=== PATIENT | male | born 1970 | race Caucasian/White ===

== ENCOUNTER → 2017-10-16 | Outpatient (CLI) | payer BC ==
[2017-10-16 09:34] LABS: MEAN CORPUSCULAR HEMOGLOBIN 31.5 pg (25-34); MEAN PLATELET VOLUME 9.9 fL (7.4-10.4); PLATELET COUNT 267 K/uL (130-400); RED BLOOD COUNT 5.11 M/uL (4.7-6.1); WHITE BLOOD COUNT 5.92 K/uL (4.8-10.8)
[2017-10-16 10:19] LABS: ALB/GLOB RATIO 1.1 (0.9-2); ALKALINE PHOSPHATASE 62 U/L (45-117); ALT/SGPT 44 U/L (12-78); AST/SGOT 25 U/L (15-37); BLOOD UREA NITROGEN 25 mg/dl (7-18); BUN/CREATININE RATIO 25.3 (10-20); CALCIUM 9.1 mg/dl (8.5-10.1); CARBON DIOXIDE 32 mmol/L (21-32); CHLORIDE 104 mmol/L (98-107); CHOLESTEROL 221 mg/dl (0-200); CHOLESTEROL/HDL RATIO 4.7; CREATININE 0.99 mg/dl (0.60-1.40); GLUCOSE 94 mg/dl (70-99); HDL CHOLESTEROL 47 mg/dl; LDL CHOLESTEROL CALCULATED 140 mg/dl; POTASSIUM 4.5 mmol/L (3.5-5.1); SODIUM 136 mmol/L (136-145); TRIGLYCERIDES 171 mg/dl (0-150); VERY LOW DENSITY LIPOPROT CALC 34 mg/dl
== END | disposition home or self-care (01) ==
LOC: C.LAB 07:07
PROVIDERS: ATTEND Internal Medicine
DX: Z00.00 Encounter for general adult medical examination without abnormal findings (principal)

== ENCOUNTER 2022-09-12 09:20 | Inpatient (IN) ==
--- NOTE | 2022-09-12 09:47 | Emergency Department Note ---
History of Present Illness General Chief complaint: Dental/Oral Stated complaint: MOUTH PAIN, SENT OVER BY DENTIST Time Seen by Provider: 09/12/22 09:33 History of Present Illness Maximum Pain Intensity: 4 This is a 52-year-old male that presents to the emergency department via private vehicle with complaints of "mouth pain, sent over by dentist". The patient notes that he has been experiencing right posterior inferior dental pain for a while now but as of recent has caused issue. The patient notes that he saw his dentist this past Friday and was started on oral amoxicillin. He has been taking the medication as prescribed. However, despite this over the past few days he has been experiencing increasing swelling to the right side of the face/neck and now difficulty opening the mouth. Patient saw his dentist today and was referred here for further evaluation and management. Patient notes pain is overall minimal and currently rates his pain as a 4/10. Patient specifically notes issue with tooth #31. Home Medications Medication Instructions Recorded Confirmed Type multivitamin (Daily Multi-Vitamin 1 tab PO HS 11/01/19 08/12/22 History tablet) mupirocin 2 % topical ointment 1 applic topical BID PRN epistaxis 08/18/20 08/12/22 Rx #15 grams aspirin 81 mg tablet 81 mg PO QPM 10/03/20 08/12/22 History finasteride 5 mg tablet 2.5 mg PO HS #45 tabs 04/01/22 08/12/22 Rx bile tvyoj-xjdc-juny-phenolpth 1 tab PO QPM 04/10/22 08/12/22 History tablet Allergies Allergy/AdvReac Type Severity Reaction Status Date / Time shellfish derived Allergy Severe Throat Verified 08/12/22 08:19 swelling No Known Drug Allergies Allergy Verified 08/12/22 08:19 Past Med/Surg History Medical History Allergic rhinitis due to pollen Anxiety Asthma HX NO INHALERS Chemotherapeutic agent or infusion extravasation received in [id number] COVID-19 virus detected HOME TEST POSITIVE 12/06/2160-[id number] AT HOME Hypercholesterolemia with LDL greater than 190 mg/dL NO MEDS-DIET MANAGING NHL (non-Hodgkin's lymphoma) diagnosed 2005--chemo/sx to remove tumor Ruptured or perforated eardrum Seasonal allergies Spring and Summer Surgical History History of colonoscopy History of nasal cauterization 04/11/22-Harsha History of oral surgery 2006 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 History of tonsillectomy and adenoidectomy Hx of LASIK S/P cholecystectomy S/P wisdom tooth extraction Family History Father Prostate cancer Family hx colonic polyps Cancer Uncle Family hx colonic polyps Uncle Family hx colonic polyps Grandmother (Paternal) Family hx of colon cancer Other Allergies No family history of adverse response to anesthesia Denies family history of Ovarian cancer Hearing loss No family history of bleeding disorder Heart disease Myocardial infarction Breast cancer Colorectal cancer Hypertension Stroke Asthma Social History Smoking Status: Never smoker Second Hand Exposure: No; Hx Alcohol Use: Yes Alcohol type: beer Alcohol Intake Frequency Comment: 1-2 x's a month Hx Substance Use: No Preferred Language: Setswana Communication Ability: Effective Visual Impairment: No Limitations Hearing Ability: Normal Stoker Erector Required: No Beliefs That Will Affect Care: None marital status: Current Living Situation: Spouse Current Living Situation Comment: Lives with and daughter current occupational status: employed current occupation: [employer] AT [employer] Feels Safe at Home: Yes Childhood Exposure to Second-Hand Smoke: No Dental Care, Regularly: Yes Physical Activity Frequency: 5-6 Times per Week Seatbelt Use: always Sunscreen Use: Yes Assistive Devices: None Review of Systems A total of 10 systems reviewed and were otherwise negative Physical Exam Vital Signs Vital Signs - 24 hr 09/12/22 09:24 09/12/22 11:21 Temperature 36.5 C Temperature Source Temporal Artery Scan Pulse Rate 82 Pulse Rate [Finger] 90 Pulse Rhythm [Finger] Regular Pulse Strength [Finger] Normal Respiratory Rate 20 19 Respiratory Effort / Characteristics Non-Labored Non-Labored Respiratory Depth Normal Normal Respiratory Pattern Regular Blood Pressure 162/92 H Blood Pressure [Left Arm] 141/96 H Blood Pressure Mean 115 Blood Pressure Mean [Left Arm] 111 Blood Pressure Position [Left Arm] Lying Pulse Oximetry 98 96 Oxygen Delivery Method Room Air Room Air Sepsis Recent Fever Within 48 Hours No Sepsis New/Unexplained Change in Mental Status N/A Sepsis Action Taken by Nursing No Action Required VITAL SIGNS - Vital signs and nursing notes were reviewed. Stable and afebrile. GENERAL -52-year-old male appearing his stated age who is in no acute distress. Communicates well with provider and answers questions appropriately. SKIN -erythema present overlying the patient's submandibular region and right anterior neck region. This is also overlying the right jawline. Edema present to these areas as well. HEAD - NC/AT. EYES - PERRL with EOMI bilaterally. Sclera anicteric. EARS - No deformities of external structures noted on gross examination bilaterally. External auditory canals without discharge or otorrhea. Tympanic membranes pearly de la rosa without retraction or bulging. No fluid or purulent material visualized behind the TM. Handle of malleus, umbo, cone of light, pars tensa/flaccid all easily visualized. NOSE - Midline and without cyanosis. No epistaxis or purulent drainage noted. Septum midline without deviation or septal hematoma noted. MOUTH/OROPHARYNX - Without perioral cyanosis. Buccal mucosa pink and moist and without leukoplakia. Mild trismus noted. Posterior pharynx within normal limits. No drooling. No stridor. No wheezing or tripoding. Tenderness present overlying the patient's floor of the mouth/sublingual region. Tenderness also extending into the jawline on the right and right anterior neck with palpable lymphadenopathy. NECK - Neck with FROM. Supple to palpation. Right anterior lymphadenopathy noted. No nuchal rigidity. LUNGS - Chest wall symmetric without accessory muscle use, intercostals retractions, or central cyanosis. Normal vesicular breath sounds CTA B/L. No wheezes, rales, or rhonchi appreciated. CARDIAC - RRR with S1/S2. No murmur, rubs, or gallops appreciated. NEUROLOGIC - Cranial nerves II through XII grossly intact. PSYCH - A&Ox3 and cooperates fully with examiner. Pt is very pleasant and interacts well with examiner. Course Administered Medications Ampicillin Sodium/Sulbactam Sodium 3,000 mg/ Sodium Chloride 108 mls @ 200 mls/hr IV Q6H [facility]; Protocol Stop: 09/22/22 17:59 Last Admin: 09/12/22 23:34 Dose: 200 mls/hr Documented By: Infusion: 09/12/22 19:10 Dose: 0 mls/hr Documented By: Admin: 09/12/22 18:34 Dose: 200 mls/hr Documented By: MICAH Acetaminophen (Ofirmev) 1,000 mg in 100 mls @ 400 mls/hr IV Q8H PRN PRN Reason: Mild pain or fever Stop: 09/15/22 13:31 Last Infusion: 09/12/22 20:10 Dose: 0 mls/hr Documented By: Admin: 09/12/22 19:55 Dose: 400 mls/hr Documented By: NATALYA Lactated Ringer's (Lr) 1,000 mls @ 125 mls/hr IV .Q8H JESUS Stop: 10/12/22 13:31 Last Admin: 09/12/22 22:17 Dose: 125 mls/hr Documented By: Infusion: 09/12/22 22:05 Dose: 125 mls/hr Documented By: Admin: 09/12/22 14:05 Dose: 125 mls/hr Documented By: MICAH Ketorolac Tromethamine (Ketorolac Tromethamine 15 Mg/Ml Vial) 15 mg IV Q6H PRN PRN Reason: Mild Pain Stop: 09/17/22 13:31 Last Admin: 09/12/22 23:46 Dose: 15 mg Documented By: Admin: 09/12/22 14:26 Dose: 15 mg Documented By: MICAH Multivitamins (Multivitamin Tab) 1 tab PO HS JESUS Stop: 10/12/22 20:59 Last Admin: 09/12/22 19:54 Dose: 1 tab Documented By: NATALYA Discontinued Medications Ampicillin Sodium/Sulbactam Sodium 3,000 mg/ Sodium Chloride 108 mls @ 216 mls/hr IV NOW ONE Stop: 09/12/22 11:44 Last Infusion: 09/12/22 13:49 Dose: 0 mls/hr Documented By: Admin: 09/12/22 12:00 Dose: 216 mls/hr Documented By: JESSICA Medical Decision Making Laboratory Data Result diagrams: 09/12/22 10:04 09/12/22 10:04 Lab Results 09/12/22 09/12/22 Range/Units 10:04 10:04 WBC 6.25 (4.8-10.8) K/ul RBC 4.95 (4.63-6.08) M/uL Hgb 15.3 (14.0-18.0) g/dl Hct 43.9 (40.1-51.0) % MCV 88.7 (80.0-100.0) fL MCH 30.9 (25.0-34.0) pg MCHC 34.9 (32.0-36.0) g/dL RDW Std Deviation 43.4 (36.4-46.3) fL RDW Coeff of Laureen 13.2 (11.5-14.5) % Plt Count 251 (130-400) K/uL MPV 8.9 L (9.4-12.4) fL Immature Gran % (Auto) 0.2 % Neut % (Auto) 58.7 % Lymph % (Auto) 27.2 % Forrest % (Auto) 12.3 % Eos % (Auto) 1.4 % Baso % (Auto) 0.2 % Neut # (Auto) 3.67 (1.4-6.5) K/uL Lymph # (Auto) 1.70 (1.2-3.4) K/uL Forrest # (Auto) 0.77 (0.24-0.82) K/uL Eos # (Auto) 0.09 (0-0.50) K/uL Baso # (Auto) 0.01 (0-0.2) K/uL Immature Gran # (Auto) 0.01 (0.00-0.02) K/uL Sodium 138 (136-145) mmol/L Potassium 4.2 (3.5-5.1) mmol/L Chloride 103 (98-107) mmol/L Carbon Dioxide 30 (21-32) mmol/L Anion Gap 5 (3-11) BUN 18 (6-23) mg/dl Creatinine 0.79 (0.6-1.4) mg/dl Est Cr Clr Drug Dosing 140.6 ml/min Est GFR ( Amer) 119.7 ml/min Est GFR (Non-Af Amer) 103.2 ml/min BUN/Creatinine Ratio 22.8 H (10-20) Glucose 100 H (70-99(Fasting)) mg/dl Calcium 9.6 (8.5-10.1) mg/dl Total Bilirubin 0.4 (0.2-1.0) mg/dl AST 17 (13-39) U/L ALT 28 (7-52) U/L Alkaline Phosphatase 40 (34-104) U/L Total Protein 7.3 (6.0-8.3) gm/dl Albumin 4.0 (3.4-5.0) gm/dl Globulin 3.3 (2.5-4.0) gm/dl Albumin/Globulin Ratio 1.2 (0.9-2) Imaging Data Radiologist's Impression: Soft Tissue Neck CT 09/12/22 10:06 CT soft tissue neck wo con CLINICAL HISTORY: Pain, right-sided neck and facial swelling. Technique: Axial CT images of the soft tissues of the neck were obtained following intravenous administration of 100 cc of Omnipaque 300. Automated dose lowering techniques and/or adjustment according to patient size were utilized for this exam. CT DOSE: 490.49 mGycm Comparison: None available at the time of this dictation. Findings: Soft tissue swelling is seen in the mandibular soft tissues extending to the anterior mid neck without evidence of drainable fluid collection. Within the limits of a nondedicated exam, there is apparent periapical lucency in the right mandibular second molar. No cortical breakthrough is seen. The oropharynx, hypopharynx, larynx, and trachea are patent. No enlarged lymph nodes are seen. The parotid glands, submandibular glands, and thyroid gland are unremarkable. Imaged portions of the brain parenchyma are unremarkable. The paranasal sinuses and mastoid air cells are normal in appearance. Impression: Soft tissue stranding in the mandibular tissues extending to the mid neck compatible with cellulitis. No drainable fluid collection is seen. ACT 112: Negative or not required by law. Electronically signed by: Romeo Hua M.D. 09/12/2022 10:49 AM [facility] Narrative Patient was seen and evaluated as above in room C05. Review was performed of nursing notes and vital signs. After obtaining a thorough history and physical examination the above work up was performed. Patient presents to us today for evaluation of right-sided facial swelling and pain. He clinically appears well but does certainly have edema noted to the submental/mandibular regions. Options of care were discussed with the patient. IV access was established. Labs were drawn. There is no leukocytosis or concerning anemia. CT imaging was obtained but without contrast noting his shellfish allergy and concerned that if there is any reaction/swelling this would only compound with the swelling already present to the oral region. COVID testing negative. CT scan results as above. Soft tissue stranding in the mandibular tissues extending to the mid neck compatible with cellulitis. No drainable fluid collection. I discussed this with the on-call oral surgeon, Dr. Dominguez. He will see the patient here in the hospital. Patient has already been on 2 days of oral antibiotics with worsening symptoms. We will proceed with inpatient management with likely surgical extraction of the tooth. IV Unasyn ordered. Case then discussed with the hospitalist. Please refer to further documentation regarding his stay. Patient amenable to plan of care. GCS: 15 In the evaluation and treatment of this patient, the following differential diagnoses were considered: Periapical Abscess, Osteonecrosis of the Jaw, Dental Fracture, Dental Caries, Ethan's Angina, Vincent's Angina, Facial Cellulitis. Impression & Plan Cellulitis of neck, Dental infection, Failure of outpatient treatment Discharge Plan Visit Data Chief Complaint: Dental/Oral Stated Complaint: MOUTH PAIN, SENT OVER BY DENTIST ED Provider: Nayely Castaneda ED Midlevel Provider: Marshal Lopez Discharge Problem: Cellulitis of neck, Dental infection, Failure of outpatient treatment Patient Disposition: Admitted As Inpatient Condition: Good Discharge Instructions Interventions: ED Discharge Assessment Last Done: 09/12/22 12:56
[2022-09-12 10:16] LABS: Basophils # (auto) 0.01 K/uL (0-0.2); Basophils % (auto) 0.2 %; Eosinophils # (auto) 0.09 K/uL (0-0.50); Eosinophils % (auto) 1.4 %; Hematocrit (blood only) 43.9 % (40.1-51.0); Hemoglobin 15.3 g/dl (14.0-18.0); Immature Granulocytes # (auto) 0.01 K/uL (0.00-0.02); Immature Granulocytes % (auto) 0.2 %; Lymphocytes % (auto) 27.2 %; Mean Corpuscular Hemoglobin 30.9 pg (25.0-34.0); Mean Corpuscular Hgb Conc 34.9 g/dL (32.0-36.0); Mean Corpuscular Volume 88.7 fL (80.0-100.0); Mean Platelet Volume 8.9 fL (9.4-12.4); Monocytes # (auto) 0.77 K/uL (0.24-0.82); Monocytes % (auto) 12.3 %; Neutrophils # (auto) 3.67 K/uL (1.4-6.5); Neutrophils % (auto) 58.7 %; Platelet Count 251 K/uL (130-400); RDW Coefficient of Variation 13.2 % (11.5-14.5); RDW Standard Deviation 43.4 fL (36.4-46.3); Red Blood Count 4.95 M/uL (4.63-6.08); White Blood Count 6.25 K/ul (4.8-10.8)
[2022-09-12 10:42] LABS: Albumin Globulin Ratio 1.2 (0.9-2); BUN Creatinine Ratio 22.8 (10-20); Bilirubin,Total 0.4 mg/dl (0.2-1.0); Calcium 9.6 mg/dl (8.5-10.1); Creatinine Clr Calc Pharmacy 140.6 ml/min; Est GFR (African American) 119.7 ml/min; Est GFR (Non-African American) 103.2 ml/min; Globulin 3.3 gm/dl (2.5-4.0); Potassium 4.2 mmol/L (3.5-5.1); Total Protein 7.3 gm/dl (6.0-8.3)
--- NOTE | 2022-09-12 10:52 | CT Scan Report ---
CT soft tissue neck wo con CLINICAL HISTORY: Pain, right-sided neck and facial swelling. Technique: Axial CT images of the soft tissues of the neck were obtained following intravenous admini stration of 100 cc of Omnipaque 300. Automated dose lowering techniques and/or adjustment according t o patient size were utilized for this exam. CT DOSE: 490.49 mGycm Comparison: None available at the time of this dictation. Findings: Soft tissue swelling is seen in the mandibular soft tissues extending to the anterior mid neck withou t evidence of drainable fluid collection. Within the limits of a nondedicated exam, there is apparent periapical lucency in the right mandibular second molar. No cortical breakthrough is seen. The oroph arynx, hypopharynx, larynx, and trachea are patent. No enlarged lymph nodes are seen. The parotid gla nds, submandibular glands, and thyroid gland are unremarkable. Imaged portions of the brain parenchyma are unremarkable. The paranasal sinuses and mastoid air cell s are normal in appearance. Impression: Soft tissue stranding in the mandibular tissues extending to the mid neck compatible with cellulitis. No drainable fluid collection is seen. ACT 112: Negative or not required by law. Electronically signed by: Romeo Hua M.D. 09/12/2022 10:49 AM
[2022-09-12] MEDS ORDERED: AMPICILLIN/SULBACTAM SOD 3,000 MG in 0.9 % SODIUM CHLORIDE 100 ML IV ONE (11:15)
--- NOTE | 2022-09-12 11:29 | History & Physical Report ---
Date of Service September 12, 2022 Assessment & Plan (1) Periodontitis: Plan: - Soft tissue neck CT w/o contrast: Periapical lucency in the right mandibular second molar without cortical breakthrough. Soft tissue stranding in the mandibular tissues extending to mid neck compatible cellulitis without drainable fluid collection. Oropharynx, hypopharynx, larynx, and trachea are patent. Parotid glands, submandibular glands, thyroid gland unremarkable. -Patient is managing secretions on his own, no shortness of breath or airway narrowing. - IV Unasyn every 6 hours - Oromaxillary surgeon consulted. Appreciate assistance and recommendations. - NPO. IVF for hydration. - Tylenol, Toradol, morphine for pain control. - Head of bed should be 90 degrees at all times. (2) History of non-Hodgkin's lymphoma: Plan: - History of stage I non-Hodgkin's lymphoma. - s/p tongue lesion resection, chemo, radiation in . (3) Hypercholesterolemia with LDL greater than 190 mg/dL: Plan: - Patient declines statin therapy at this time. Plan - Admit to PCU. - SCDs for VTE PPx. - Full code. - Holding home meds (aspirin, Proscar, bile salt) while n.p.o. History of Present Illness Chief Complaint: Right-sided jaw pain, swelling x2 days Primary Care Provider: Lien Ruiz MD Tristan Márquez is a 52-year-old male with a past medical history significant for non-Hodgkin's lymphoma in remission, hyperlipidemia, and BPH is presenting today at the referral of his dentist for jaw swelling. That 10 days ago, he noticed mild jaw pain. It was initially mild and tolerable at home, however it became quite severe this Friday. He saw his dentist 2 days ago, on Friday and x-rays were taken. He was told the nerve roots appeared and that he would need to have a root canal. He has been on amoxicillin since Friday, however today his pain is worse, his entire jaw is red, and he is having difficulty opening his mouth due to swelling. He is unable to eat much due to difficulty opening jaw and pain in his teeth on the right side, he felt warm yesterday but has not had any fever or chills, no drooling, choking, shortness of breath, or feeling as though his throat is closing. Soft tissue neck CT without contrast was ordered given patient's anaphylactic allergy to shellfish. There is apparent periapical lucency in the right mandibular second molar without cortical breakthrough. Soft tissue stranding in the mandibular tissues extending to the mid neck compatible with a cellulitis, no drainable fluid collection is seen. Oropharynx, hypopharynx, larynx, trachea patent, there are no enlarged lymph nodes seen, and the parotid glands, submandibular glands, and thyroid gland are unremarkable. Labs are largely unrevealing, without a white count or left shift, electrolytes within normal limits, renal function at baseline, no transaminitis. He will be admitted for IV antibiotics and evaluation by oromaxillary surgeon. Allergies Allergy/AdvReac Type Severity Reaction Status Date / Time shellfish derived Allergy Severe Throat Verified 08/12/22 08:19 swelling No Known Drug Allergies Allergy Verified 08/12/22 08:19 Home Medications Medication Instructions Recorded Confirmed Type multivitamin (Daily Multi-Vitamin 1 tab PO HS 11/01/19 09/16/22 History tablet) mupirocin 2 % topical ointment 1 applic topical BID PRN epistaxis 08/18/20 09/16/22 Rx #15 grams aspirin 81 mg tablet 81 mg PO QPM 10/03/20 09/16/22 History finasteride 5 mg tablet 2.5 mg PO HS #45 tabs 04/01/22 09/16/22 Rx bile dqces-gtvu-bnnz-phenolpth 1 tab PO QPM 04/10/22 09/16/22 History tablet ondansetron HCl 8 mg tablet 8 mg PO Q8H PRN nausea and 09/13/22 09/16/22 Rx vomiting #10 tabs chlorhexidine gluconate 0.12 % 15 ml buccal BID 14 days #473 mL 09/14/22 09/16/22 Rx mouthwash (Peridex) Past Med/Surg History Medical History Allergic rhinitis due to pollen Anxiety Asthma HX NO INHALERS Chemotherapeutic agent or infusion extravasation received in 0930-5339 COVID-19 virus detected HOME TEST POSITIVE 12/06/2136-[id number] AT HOME Hypercholesterolemia with LDL greater than 190 mg/dL NO MEDS-DIET MANAGING NHL (non-Hodgkin's lymphoma) diagnosed 2005--chemo/sx to remove tumor Ruptured or perforated eardrum Seasonal allergies Spring and Summer Surgical History History of colonoscopy History of nasal cauterization 04/11/22-[facility]ha History of oral surgery 2005 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 History of tonsillectomy and adenoidectomy Hx of LASIK S/P cholecystectomy S/P wisdom tooth extraction Family History Father Prostate cancer Family hx colonic polyps Cancer Uncle Family hx colonic polyps Uncle Family hx colonic polyps Grandmother (Paternal) Family hx of colon cancer Other Allergies No family history of adverse response to anesthesia Denies family history of Ovarian cancer Hearing loss No family history of bleeding disorder Heart disease Myocardial infarction Breast cancer Colorectal cancer Hypertension Stroke Asthma Social History Smoking Status: Never smoker Second Hand Exposure: No; Hx Alcohol Use: Yes Alcohol type: beer Alcohol Intake Frequency Comment: 1-2 x's a month Hx Substance Use: No Preferred Language: Filipino Communication Ability: Effective Visual Impairment: No Limitations Hearing Ability: Normal Rn Ante Partum Required: No Beliefs That Will Affect Care: None marital status: Current Living Situation: Spouse Current Living Situation Comment: Lives with and daughter current occupational status: employed current occupation: [employer] AT [employer] Feels Safe at Home: Yes Childhood Exposure to Second-Hand Smoke: No Dental Care, Regularly: Yes Physical Activity Frequency: 5-6 Times per Week Seatbelt Use: always Sunscreen Use: Yes Assistive Devices: None Review of Systems Review of Systems: Constitutional: No fever/chills, weakness, fatigue, myalgias, anorexia, night sweats Eyes: No diplopia, no worsening or blurred vision ENT: Right-sided jaw pain, worse in the back along area of molars, with right sided jaw swelling worse since last evening, difficulty opening jaw, however no difficulty swallowing, managing secretions Respiratory: No cough, sputum, dyspnea at rest or on exertion Cardiovascular: No chest pain, tightness or palpitations Abdomen: No pain, nausea, vomiting, diarrhea or constipation : Denies dysuria, hematuria, increased urgency/frequency, urinary retention Musculoskeletal: No joint pain, calf pain, swelling Neurologic: No weakness, numbness/tingling, or balance problems Psychiatric: No anxiety or depression Skin: No rash or itch Physical Exam Physical Exam: General: awake, alert, no apparent distress Head: Normocephalic, atraumatic ENT: Right neck/jaw erythematous and edematous, stops at midline; oral exam limited secondary to patient's inability to open jaw very wide, however no pharyngeal exudates seen, mucous membranes moist, no obvious abscess, purulent drainage, or infection noted Chest: Clear to auscultation, on room air, no adventitious breath sounds Cardiac: Regular rate and rhythm, no murmur, no JVD, normal peripheral pulses, good capillary refill Abdominal: NABS x 4 quadrants, soft, nontender to palpation, no rebound, guarding or tenderness Extremities: Normal inspection, no peripheral edema or erythema, calfs nontender to palpation Psych: Normal mood and affect Neuro: AAO x 3, strength intact bilaterally and rated 5/5, no motor deficits, speech is clear, no peripheral sensory deficits Skin: no rash or erythema Results & Data Results & Data ([facility]) Vital Signs (Past 12 Hours) Vital Signs Temp Pulse Resp BP Pulse Ox O2 Del Method 09/12/22 09:24 36.5 C 82 20 162/92 H 98 Room Air Laboratory Results Abnormal lab results 09/12/22 09/12/22 Range/Units 10:04 10:04 MPV 8.9 L (9.4-12.4) fL BUN/Creatinine Ratio 22.8 H (10-20) Glucose 100 H (70-99(Fasting)) mg/dl Diagnostic Findings Soft Tissue Neck CT 09/12/22 10:06 CT soft tissue neck wo con CLINICAL HISTORY: Pain, right-sided neck and facial swelling. Technique: Axial CT images of the soft tissues of the neck were obtained following intravenous administration of 100 cc of Omnipaque 300. Automated dose lowering techniques and/or adjustment according to patient size were utilized for this exam. CT DOSE: 490.49 mGycm Comparison: None available at the time of this dictation. Findings: Soft tissue swelling is seen in the mandibular soft tissues extending to the anterior mid neck without evidence of drainable fluid collection. Within the limits of a nondedicated exam, there is apparent periapical lucency in the right mandibular second molar. No cortical breakthrough is seen. The oropharynx, hypopharynx, larynx, and trachea are patent. No enlarged lymph nodes are seen. The parotid glands, submandibular glands, and thyroid gland are unremarkable. Imaged portions of the brain parenchyma are unremarkable. The paranasal sinuses and mastoid air cells are normal in appearance. Impression: Soft tissue stranding in the mandibular tissues extending to the mid neck compatible with cellulitis. No drainable fluid collection is seen. ACT 112: Negative or not required by law. Electronically signed by: Romeo Hua M.D. 09/12/2022 10:49 AM Code Status & VTE Plan Code Status Full code Supervising Physician Co-Signing Physician Notes During face to face encounter, I obtained a history of present illness and performed a physical examination. I reviewed above note and agree with it. D/W APC Ellison and patient plan of care. Patient will be seen by Oromaxi. surgeon. will continue antibiotics as stated above for periodontitis PG Care Time/CCT Total # of Minutes Spent Total Time Spent with Patient: Total time spent is greater than 50% in coordination of care (as documented) at patient's floor/unit and/or counseling patient: Coding Level of Care Code 18636 Initial Inpt Care Lvl 3 Diagnoses Periodontitis K05.30 History of non-Hodgkin's lymphoma Z85.72 Hypercholesterolemia with LDL greater than 190 mg/dL E78.00
[2022-09-12] MEDS ORDERED: ONDANSETRON INJ 2 MG/ML 2 ML VIAL IV PRN (13:32)
[2022-09-12] MEDS ORDERED: MoRPHine SULFATE 2 MG/ML CARP IV PRN (13:32)
[2022-09-12] MEDS ORDERED: MUPIROCIN 2% OINT 22 GM TUBE TOP PRN (13:32)
[2022-09-12] MEDS ORDERED: MoRPHine SULFATE 4 MG/ML 1 ML CARP\\VIAL IV PRN (13:32)
--- NOTE | 2022-09-12 13:39 | Oral/Maxillofacial Consult ---
Date of Consultation September 12, 2022 History of Present Illness Attending Physician: Lester Valle History of Present Illness Oral Maxillofacial Surgery Exam- failed outpatient therapy Present Complaint: I have pain/swelling/drainage from my infected lower right second molar # 31 Symptoms have been ongoing for a while. Pain on percussion and bitting Dentist feels this is a fractured tooth The plan was for removal but infection and trismus developed last night and patient was admitted secondary to failure to respond to out patient antibiotics, limited opening, pain and swelling Oral Exam: Finding--very limited opening about 10 mm very tight secondary to infection , tender gingival tissue with deep pocket formation. # 31 tender, fractured in abnormal position and removal is clinical indicated to drain the infection of the submandibular and masseter space Imaging: X Ray from the dentist--failing # [address] soft tissue neck wo con CLINICAL HISTORY: Pain, right-sided neck and facial swelling. Findings: Soft tissue swelling is seen in the mandibular soft tissues extending to the anterior mid neck without evidence of drainable fluid collection. Within the limits of a nondedicated exam, there is apparent periapical lucency in the right mandibular second molar. No cortical breakthrough is seen. The oropharynx, hypopharynx, larynx, and trachea are patent. No enlarged lymph nodes are seen. The parotid glands, submandibular glands, and thyroid gland are unremarkable. Imaged portions of the brain parenchyma are unremarkable. The paranasal sinuses and mastoid air cells are normal in appearance. Impression: Soft tissue stranding in the mandibular tissues extending to the mid neck compatible with cellulitis. No drainable fluid collection is seen. Soft tissue: Very limited opening, floor of the mouth tender on the lingual of # 31 , tongue, hard/soft palate, posterior pharyngeal area all with in normal limits, no other pathology or abnormal findings noted. Right subglandular swelling, masseter space infection which is the cause of the trismus. Oral Care: Overall oral care is good Occlusion: Class II open bite, narrow maxilla TMJ exam: limited opening secondary to infection Periodontal exam: Healthy gingival tissue without evidence of periodontal pathology. Head/Neck exam: Neck is supple, FROM, somewhat limited secondary to infection the ability to extend and flex neck w/o difficulty, swelling submandibular glands, no other abnormalities, no airway issues, Treatment Plan: Set up with general anesthesia in hospital to drain the infected spaces and extraction of # 31 tomorrow NPO to night I reviewed the treatment plan and consent with the patient Understanding was expressed. Time was given for questions regarding the surgery, risks and post op care. Discussed alternative to treatment--procedure as planned, Do not do surgery # 31 is infected and fractured removal is indicated and medically necessary. The following teeth are decayed and fractured and removal is indicated HELENE:31 with L&D Risks discussed: Bleeding,Pain,swelling,infection, dry socket, delayed healing, nerve injury to face,lips,tongue,chin area which could be permanent (rare). TMJ, jaw stiffness, change in bite (rare), ear pain (referred). Sinus problems like fistula or infection. Need to leave a small root fragment in place to avoid injury to nerve or sinus. Relationship of wisdom teeth to nerve/sinus and risk of jaw fracture. Home care reviewed: tooth brushing, rinsing, follow up care with Dr Dominguez. diet=[id number] dental. Discussed activity level, driving/work while on Rx pain Meds. Surgery to be set up FridaySep 13 with GA in OR Allergies Allergy/AdvReac Type Severity Reaction Status Date / Time shellfish derived Allergy Severe Throat Verified 08/12/22 08:19 swelling No Known Drug Allergies Allergy Verified 08/12/22 08:19 Home Medications Medication Instructions Recorded Confirmed Type multivitamin (Daily Multi-Vitamin 1 tab PO HS 11/01/19 08/12/22 History tablet) mupirocin 2 % topical ointment 1 applic topical BID PRN epistaxis 08/18/20 08/12/22 Rx #15 grams aspirin 81 mg tablet 81 mg PO QPM 10/03/20 08/12/22 History finasteride 5 mg tablet 2.5 mg PO HS #45 tabs 04/01/22 08/12/22 Rx bile ijmob-wxrj-sotp-phenolpth 1 tab PO QPM 04/10/22 08/12/22 History tablet Patient History Medical History Allergic rhinitis due to pollen Anxiety Asthma HX NO INHALERS Chemotherapeutic agent or infusion extravasation received in 1356-1309 COVID-19 virus detected HOME TEST POSITIVE 12/06/2150-[id number] AT HOME Hypercholesterolemia with LDL greater than 190 mg/dL NO MEDS-DIET MANAGING NHL (non-Hodgkin's lymphoma) diagnosed 2005--chemo/sx to remove tumor Ruptured or perforated eardrum Seasonal allergies Spring and Summer Surgical History History of colonoscopy History of nasal cauterization 04/11/22-Harsha History of oral surgery 2005 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 History of tonsillectomy and adenoidectomy Hx of LASIK S/P cholecystectomy S/P wisdom tooth extraction Family History Father Prostate cancer Family hx colonic polyps Cancer Uncle Family hx colonic polyps Uncle Family hx colonic polyps Grandmother (Paternal) Family hx of colon cancer Other Allergies No family history of adverse response to anesthesia Denies family history of Ovarian cancer Hearing loss No family history of bleeding disorder Heart disease Myocardial infarction Breast cancer Colorectal cancer Hypertension Stroke Asthma Social History Smoking Status: Never smoker Second Hand Exposure: No; Hx Alcohol Use: Yes Alcohol type: beer Alcohol Intake Frequency Comment: 1-2 x's a month Hx Substance Use: No Preferred Language: Northern Irish Communication Ability: Effective Visual Impairment: No Limitations Hearing Ability: Normal Marketing Production Manager Required: No Beliefs That Will Affect Care: None marital status: Current Living Situation: Spouse Current Living Situation Comment: Lives with and daughter current occupational status: employed current occupation: [employer] AT [employer] Other Information That Helps Us Care for You: No Feels Safe at Home: Yes Safety Concerns: Feels Safe At This Time Childhood Exposure to Second-Hand Smoke: No Dental Care, Regularly: Yes Physical Activity Frequency: 5-6 Times per Week Seatbelt Use: always Sunscreen Use: Yes Assistive Devices: None Results & Data ([facility]) Vital Signs (Past 12 Hours) Vital Signs Temp Pulse Pulse Resp BP BP Pulse Ox 09/12/22 13:05 36.8 C 82 152/95 H 98 09/12/22 12:56 09/12/22 11:21 90 19 141/96 H 96 09/12/22 09:24 36.5 C 82 20 162/92 H 98 O2 Del Method 09/12/22 13:05 Room Air 09/12/22 12:56 Room Air 09/12/22 11:21 Room Air 09/12/22 09:24 Room Air PG Care Time/CCT Total # of Minutes Spent Total Time Spent with Patient: Total time spent is greater than 50% in coordination of care (as documented) at patient's floor/unit and/or counseling patient: Coding Level of Care Code 50411 Inpt Consult Level 3
[2022-09-12] MEDS: LACTATED RINGER'S 1,000 ML IV SCH ×2 (14:05→22:17)
[2022-09-12] MEDS: KETOROLAC TROMETHAMINE 15 MG/ML VIAL IV PRN ×2 (14:26→23:46)
[2022-09-12] MEDS: AMPICILLIN/SULBACTAM SOD 3,000 MG in 0.9 % SODIUM CHLORIDE 100 ML IV SCH ×2 (18:34→23:34)
[2022-09-12] MEDS: MULTIVITAMIN TAB PO SCH (19:54)
[2022-09-12] MEDS: ACETAMINOPHEN 1,000 MG/100 ML VIAL IV PRN (19:55)
[2022-09-13] MEDS: ACETAMINOPHEN 1,000 MG/100 ML VIAL IV PRN (05:21)
[2022-09-13] MEDS: LACTATED RINGER'S 1,000 ML IV SCH ×2 (05:21→09:26)
[2022-09-13] MEDS: AMPICILLIN/SULBACTAM SOD 3,000 MG in 0.9 % SODIUM CHLORIDE 100 ML IV SCH ×4 (05:44→23:57)
[2022-09-13] MEDS: KETOROLAC TROMETHAMINE 15 MG/ML VIAL IV PRN (07:43)
--- NOTE | 2022-09-13 14:08 | Hospitalist Progress Note ---
Date of Service September 13, 2022 Assessment & Plan (1) Periodontitis: Plan: - Soft tissue neck CT w/o contrast: Periapical lucency in the right mandibular second molar without cortical breakthrough. Soft tissue stranding in the mandibular tissues extending to mid neck compatible cellulitis without drainable fluid collection. Oropharynx, hypopharynx, larynx, and trachea are patent. Parotid glands, submandibular glands, thyroid gland unremarkable. -Patient is managing secretions on his own, no shortness of breath or airway narrowing. - IV Unasyn day 2 - Oromaxillary surgeon consult appreciated. Affected tooth extraction later today, September 13. -Pain control measures (2) History of non-Hodgkin's lymphoma: Plan: - History of stage I non-Hodgkin's lymphoma. s/p tongue lesion resection, chemo, radiation in . (3) Hypercholesterolemia with LDL greater than 190 mg/dL: Plan: declines statin therapy at this time. Plan Disposition: Anticipate eventual discharge to home on oral antibiotic. Possibly tomorrow, September 14, if stable. - Holding home meds (aspirin, Proscar, bile salt) while n.p.o. Admission and Anticipated Discharge Date Admission Date: September 12, 2022 Subjective The patient states he is able to swallow easier now. He continues to have some edema in the right mandibular area. Oral maxillofacial surgery consultation noted. Affected tooth extraction today, September 13. Continue Unasyn, day 2. Review of Systems Review of Systems: Constitutional-no fever or chills ENT-no blurred vision, no double vision, no epistaxis, no sore throat. The patient feels the swelling on the right mandibular region has decreased and he is swallowing better Respiratory-no cough, no wheezing, no shortness of breath Cardiac-no palpitations, no chest pain, no syncope GI-no nausea, vomiting, diarrhea, melena, hematochezia -no urinary retention, no urinary incontinence, no dysuria, no hematuria Musculoskeletal-no joint pain, no muscle tenderness Skin-no bruising, no rashes, no pruritus Neuro-no isolated weakness, no paresthesia, no weakness Psych-no depression, no anxiety Physical Exam Physical Exam: General-alert and oriented x3, no fevers, no chills HEENT-right facial and mandibular swelling has decreased somewhat according to the patient. I cannot visualize the affected right posterior mandibular fractured tooth due to tissue swelling and inability of the patient to open his mouth very wide. Head atraumatic and normocephalic, pupils equal and reactive to light, extraocular muscles intact Neck-no lymphadenopathy or thyromegaly, trachea midline Chest-clear to auscultation percussion. No rales wheezing or rhonchi Cardiac-regular rate and rhythm, normal S1 and S2, no murmurs Abdomen-normal bowel sounds, nontender, no hepatosplenomegaly Extremities-no cyanosis, clubbing, or edema Neuro-cranial nerves II through XII intact, motor and sensory function within normal limits, strength symmetrical , no focal deficits Psych-normal affect, normal mood Results & Data Results & Data ([facility]) Vital Signs (Past 12 Hours) Vital Signs Temp Pulse Pulse Resp BP Pulse Ox O2 Del Method 09/13/22 13:49 36.8 C 74 18 179/99 H 98 09/13/22 08:06 36.4 C L 73 18 144/88 H 95 Room Air 09/13/22 06:08 74 09/13/22 03:00 36.6 C 73 18 155/88 H 97 Room Air Laboratory Results 09/12/22 10:04 09/12/22 10:04 PG Care Time/CCT Total # of Minutes Spent Total Time Spent with Patient: Total time spent is greater than 50% in coordination of care (as documented) at patient's floor/unit and/or counseling patient: Coding Level of Care Code 74553 Subseq Hosp Care Lvl 2 Diagnoses Periodontitis K05.30 History of non-Hodgkin's lymphoma Z85.72 Hypercholesterolemia with LDL greater than 190 mg/dL E78.00
[2022-09-13] MEDS ORDERED: LIDOCAINE 2% MPF LOCAL 5 ML VIAL INFIL ONE (14:09)
[2022-09-13] MEDS ORDERED: LIDOCAINE 2% 20 MG/ML 5 ML SYR IV ONE (14:09)
[2022-09-13] MEDS ORDERED: ONDANSETRON INJ 2 MG/ML 2 ML VIAL ONE (14:09)
[2022-09-13] MEDS ORDERED: ROCURONIUM BROMIDE 10 MG/ML 5 ML VIAL IV ONE (14:09)
[2022-09-13] MEDS ORDERED: DEXAMETHASONE SOD INJ 4 MG/ML VIAL ONE (14:09)
[2022-09-13] MEDS ORDERED: PROPOFOL IV EMULSION 10 MG/ML 20 ML VIAL IV ONE (14:09)
[2022-09-13] MEDS ORDERED: MIDAZOLAM HCL 1 MG/ML 2ML VIAL ONE (14:10)
[2022-09-13] MEDS ORDERED: fentaNYL citrate 100 MCG/2 ML VIAL ONE (14:10)
[2022-09-13] MEDS ORDERED: CHLORHEXIDINE GLUCONATE 0.12% 480 ML ONE (14:35)
[2022-09-13] MEDS ORDERED: LIDOCAINE/EPINEPHRINE 1.7 ML CTR ONE (14:35)
--- NOTE | 2022-09-13 14:54 | History & Physical Bridge Note ---
Date of Service September 13, 2022 History & Physical Bridge Note I have examined the patient, reviewed the History & Physical and in the interval since the performance of the History & Physical I have noted the following changes of clinical significance: no changes noted OK for surgery Still trismus but improving
--- NOTE | 2022-09-13 14:58 | Anesthesiology Consultation ---
Date of Service September 13, 2022 Assessment & Plan Chart Review Chart Review: Acceptable Risk for Surgery and Patient NOT seen in Pre Admission Testing Consults Requested none ASA ASA3 Proposed Anesthesia Anesthesia Type: General Risk / Benefits Reviewed With: PT / POA / Parent / Guardian, Accepts Plan and Informed Consent Obtained History Surgery Operation Date: 09/13/22 14:30 Proposed Procedures p Incision and Drainage Right Jaw and - Joesph Dominguez DMD s Extraction of Tooth #31 - Joesph Dominguez DMD Height/Weight Height: 6 ft 1 in Weight: 106.7 kg Allergies Allergy/AdvReac Type Severity Reaction Status Date / Time shellfish derived Allergy Severe Throat Verified 08/12/22 08:19 swelling No Known Drug Allergies Allergy Verified 08/12/22 08:19 Medications Home Medications Medication Instructions Recorded Confirmed Last Taken multivitamin (Daily Multi-Vitamin 1 tab PO HS 11/01/19 08/12/22 04/09/22 tablet) mupirocin 2 % topical ointment 1 applic topical BID PRN epistaxis 08/18/20 08/12/22 04/08/22 #15 grams aspirin 81 mg tablet 81 mg PO QPM 10/03/20 08/12/22 04/09/22 finasteride 5 mg tablet 2.5 mg PO HS #45 tabs 04/01/22 08/12/22 04/10/22 bile ojekk-dkwu-woon-phenolpth 1 tab PO QPM 04/10/22 08/12/22 04/09/22 tablet Active Medications Generic Name Dose Route Start Last Admin Trade Name Freq PRN Reason Stop Dose Admin Ampicillin Sodium/Sulbactam 108 mls @ 200 mls/hr 09/12/22 18:00 09/13/22 12:48 Sodium 3,000 mg/ Sodium IV 09/22/22 17:59 Infused Chloride Q6H JESUS Infusion Protocol Acetaminophen 1,000 mg in 100 mls @ 400 mls/hr 09/12/22 13:32 09/13/22 06:10 Ofirmev IV 09/15/22 13:31 Infused Q8H PRN Infusion Mild pain or fever Lactated Ringer's 1,000 mls @ 80 mls/hr 09/12/22 13:32 09/13/22 13:35 Lr IV 10/12/22 13:31 0 mls/hr .[id number] JESUS Infusion Ketorolac Tromethamine 15 mg 09/12/22 13:32 09/13/22 07:43 Ketorolac Tromethamine 15 Mg/Ml Vial IV 09/17/22 13:31 15 mg Q6H PRN Administration Mild Pain Multivitamins 1 tab 09/12/22 21:00 09/12/22 19:54 Multivitamin Tab PO 10/12/22 20:59 1 tab HS JESUS Administration NPO Date Last Intake of Fluids: 09/12/22 Time Last Intake of Fluids: 20:30 Date Last Intake of Solids: 09/12/22 Time Last Intake of Solids: 20:30 Past Medical History Medical History Allergic rhinitis due to pollen Anxiety Asthma HX NO INHALERS Chemotherapeutic agent or infusion extravasation received in [id number] COVID-19 virus detected HOME TEST POSITIVE 12/06/2157-[id number]-[id number] AT HOME Hypercholesterolemia with LDL greater than 190 mg/dL NO MEDS-DIET MANAGING NHL (non-Hodgkin's lymphoma) diagnosed 2005--chemo/sx to remove tumor Ruptured or perforated eardrum Seasonal allergies Spring and Summer Exercise / Class Metabolic Activity II 4-5 Yardwork/Stairs/Walk up hill Past Family History Family History Father Prostate cancer Family hx colonic polyps Cancer Uncle Family hx colonic polyps Uncle Family hx colonic polyps Grandmother (Paternal) Family hx of colon cancer Other Allergies No family history of adverse response to anesthesia Denies family history of Ovarian cancer Hearing loss No family history of bleeding disorder Heart disease Myocardial infarction Breast cancer Colorectal cancer Hypertension Stroke Asthma Past Surgical History Surgical History History of colonoscopy History of nasal cauterization 04/11/22-Harsha History of oral surgery 2005 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 History of tonsillectomy and adenoidectomy Hx of LASIK S/P cholecystectomy S/P wisdom tooth extraction Past Anesthesia History No Hx of Anesthesia Complications and No Family Hx of Anesthesia Complications History of PONV No Hx of PONV and No Hx of Motion Sickness Social History Smoking Status: Never smoker Hx Alcohol Use: Yes Alcohol type: beer alcohol intake frequency: holidays/special occasions only Hx Substance Use: No substance use type: does not use Physical Exam Vital Signs Last Vital Signs Temp 36.8 C 09/13/22 13:49 Pulse 74 09/13/22 13:49 Resp 18 09/13/22 13:49 BP 179/99 H 09/13/22 13:49 Pulse Ox 98 09/13/22 13:49 O2 Del Method 09/13/22 08:06 Constitutional + obese; no acute distress ENMT Mouth: + restricted motion of mouth and + dentition abnormality Thyromental Distance: > or= 3.5 Finger Breadths Mallampati Class: Other (trismus 2ndary to oral abscess) Neck normal visual inspection and trachea midline; neck extension not limited Respiratory normal respiratory effort Auscultation: lungs clear to auscultation bilaterally Cardiovascular Rate/Rhythm: regular rate and regular rhythm Heart Sounds: no murmur Vessels: no carotid bruit Musculoskeletal Spine: normal cervical ROM Extremities: full ROM of extremities Neurologic moves all extremities Motor/Sensory: no sensory deficit Psychiatric Orientation: alert and oriented x 3 Testing Laboratory Results 09/12/22 10:04 09/12/22 10:04
--- NOTE | 2022-09-13 15:00 | Communication Note ---
Date of Service: September 13, 2022 04/10/20223246-IQS-GMG @ 64
[2022-09-13] MEDS ORDERED: NALOXONE HCL 0.4 MG/1 ML VIAL/CARP IV PRN (15:32)
[2022-09-13] MEDS ORDERED: FLUMAZENIL 0.1 MG/1 ML 10 ML VIAL IV PRN (15:32)
[2022-09-13] MEDS ORDERED: ATROPINE SULFATE 0.1 MG/ML 10ML SYR IV PRN (15:32)
[2022-09-13] MEDS ORDERED: PROMETHAZINE HCL 12.5 MG in SODIUM CHLORIDE 0.9% 50 ML IV PRN (15:32)
[2022-09-13] MEDS ORDERED: LABETALOL HCL IV 5 MG/ML 20ML IV PRN (15:32)
[2022-09-13] MEDS ORDERED: ONDANSETRON INJ 2 MG/ML 2 ML VIAL IV PRN (15:32)
[2022-09-13] MEDS ORDERED: HYDROmorphone INJ 1 MG/ML SYRINGE IV PRN (15:32)
[2022-09-13] MEDS ORDERED: fentaNYL citrate 100 MCG/2 ML VIAL IV PRN (15:32)
[2022-09-13] MEDS ORDERED: ePHEDrine sulfate 50 MG/ML AMP IV PRN (15:32)
--- NOTE | 2022-09-13 16:04 | Anesthesiology Progress Note ---
Date of Service September 13, 2022 Anesthesia Post Procedure Vital Signs Vital Signs: Temp Pulse Pulse Pulse Resp BP Pulse Ox 09/13/22 16:00 66 12 156/85 H 95 09/13/22 15:50 62 14 157/96 H 99 09/13/22 15:40 57 L 15 159/98 H 100 09/13/22 15:32 36.1 C L 55 L 12 179/95 H 97 09/13/22 13:49 36.8 C 74 18 179/99 H 98 09/13/22 08:06 36.4 C L 73 18 144/88 H 95 09/13/22 06:08 74 09/13/22 03:00 36.6 C 73 18 155/88 H 97 09/12/22 22:10 79 09/12/22 23:38 36.5 C 68 20 160/106 H 98 09/12/22 19:10 36.6 C 77 18 157/98 H 98 O2 Del Method O2 Flow Rate 09/13/22 16:00 Room Air 09/13/22 15:50 Room Air 09/13/22 15:40 Oxymask 4 09/13/22 15:32 Oxymask 6 09/13/22 13:49 09/13/22 08:06 Room Air 09/13/22 06:08 09/13/22 03:00 Room Air 09/12/22 22:10 09/12/22 23:38 Room Air 09/12/22 19:10 Room Air Pain Intensity Right Teeth: Pain Intensity: 6 Transfer of Care Handoff Completed per policy Notes Mental Status: alert / awake / arousable Patient Amnestic to Procedure: Yes Nausea / Vomiting: adequately controlled Pain: adequately controlled Airway Patency, RR, SpO2: stable & adequate BP & HR: stable & adequate Hydration State: stable & adequate Anesthetic Complications: no major complications apparent
[2022-09-13] MEDS: MULTIVITAMIN TAB PO SCH (20:33)
[2022-09-14 06:10] LABS: Basophils # (auto) 0.01 K/uL (0-0.2); Basophils % (auto) 0.1 %; Eosinophils # (auto) 0.01 K/uL (0-0.50); Eosinophils % (auto) 0.1 %; Hematocrit (blood only) 42.6 % (40.1-51.0); Hemoglobin 14.7 g/dl (14.0-18.0); Immature Granulocytes # (auto) 0.02 K/uL (0.00-0.02); Immature Granulocytes % (auto) 0.3 %; Lymphocytes # (auto) 1.76 K/uL (1.2-3.4); Lymphocytes % (auto) 26.3 %; Mean Corpuscular Hemoglobin 30.6 pg (25.0-34.0); Mean Corpuscular Hgb Conc 34.5 g/dL (32.0-36.0); Mean Corpuscular Volume 88.6 fL (80.0-100.0); Mean Platelet Volume 8.9 fL (9.4-12.4); Monocytes # (auto) 0.53 K/uL (0.24-0.82); Monocytes % (auto) 7.9 %; Neutrophils # (auto) 4.35 K/uL (1.4-6.5); Neutrophils % (auto) 65.3 %; Platelet Count 256 K/uL (130-400); RDW Coefficient of Variation 12.9 % (11.5-14.5); RDW Standard Deviation 42.2 fL (36.4-46.3); Red Blood Count 4.81 M/uL (4.63-6.08); White Blood Count 6.68 K/ul (4.8-10.8)
[2022-09-14] MEDS: AMPICILLIN/SULBACTAM SOD 3,000 MG in 0.9 % SODIUM CHLORIDE 100 ML IV SCH ×2 (06:11→12:31)
[2022-09-14 06:30] LABS: BUN Creatinine Ratio 22.7 (10-20); Calcium 9.3 mg/dl (8.5-10.1); Creatinine Clr Calc Pharmacy 147.5 ml/min; Est GFR (African American) 122.2 ml/min; Est GFR (Non-African American) 105.5 ml/min; Potassium 4.3 mmol/L (3.5-5.1)
--- NOTE | 2022-09-14 13:03 | Discharge Summary ---
Date of Service date of admission - September 12, 2022 date of discharge - September 14, 2022 Admission HPI Per Admitting Provider Tristan Márquez is a 52-year-old male with a past medical history significant for non-Hodgkin's lymphoma in remission, hyperlipidemia, and BPH is presenting today at the referral of his dentist for jaw swelling. That 10 days ago, he noticed mild jaw pain. It was initially mild and tolerable at home, however it became quite severe this Friday. He saw his dentist 2 days ago, on Friday and x-rays were taken. He was told the nerve roots appeared and that he would need to have a root canal. He has been on amoxicillin since Friday, however today his pain is worse, his entire jaw is red, and he is having difficulty opening his mouth due to swelling. He is unable to eat much due to difficulty opening jaw and pain in his teeth on the right side, he felt warm yesterday but has not had any fever or chills, no drooling, choking, shortness of breath, or feeling as though his throat is closing. Soft tissue neck CT without contrast was ordered given patient's anaphylactic allergy to shellfish. There is apparent periapical lucency in the right mandibular second molar without cortical breakthrough. Soft tissue stranding in the mandibular tissues extending to the mid neck compatible with a cellulitis, no drainable fluid collection is seen. Oropharynx, hypopharynx, larynx, trachea patent, there are no enlarged lymph nodes seen, and the parotid glands, submandibular glands, and thyroid gland are unremarkable. Labs are largely unrevealing, without a white count or left shift, electrolytes within normal limits, renal function at baseline, no transaminitis. He will be admitted for IV antibiotics and evaluation by oromaxillary surgeon. Principal Diagnosis Dental Abscess right mandibular molar (#31) s/p incision/drainage of abscess with extraction Discharge Exam gen - NAD, pleasant HENT - MMM, socket of previously extracted #31 molar (right mandibular molar) clean, no bleeding, mild gingival irritation jaw - mild swelling submandibular region on right heart - RRR, s1 s2, no murmur lungs - CTA b/l abd - soft NT ND BS+ ext - no edema, pulses 2+ b/l Discharge Data Allergies Allergy/AdvReac Type Severity Reaction Status Date / Time shellfish derived Allergy Severe Throat Verified 08/12/22 08:19 swelling No Known Drug Allergies Allergy Verified 08/12/22 08:19 Consultations Oromaxillofacial Surgery - Joesph Dominguez DMD Procedures Performed Operation Date: 09/13/22 14:30 Actual Procedures p Incision and Drainage Right Jaw(Not Applicable) - Joesph Dominguez DMD s Extraction of Tooth #31(Not Applicable) - Joesph Dominguez DMD Ordered Studies Soft Tissue Neck CT 09/12/22 10:06 CT soft tissue neck wo con CLINICAL HISTORY: Pain, right-sided neck and facial swelling. Technique: Axial CT images of the soft tissues of the neck were obtained following intravenous administration of 100 cc of Omnipaque 300. Automated dose lowering techniques and/or adjustment according to patient size were utilized for this exam. CT DOSE: 490.49 mGycm Comparison: None available at the time of this dictation. Findings: Soft tissue swelling is seen in the mandibular soft tissues extending to the anterior mid neck without evidence of drainable fluid collection. Within the limits of a nondedicated exam, there is apparent periapical lucency in the right mandibular second molar. No cortical breakthrough is seen. The oropharynx, hypopharynx, larynx, and trachea are patent. No enlarged lymph nodes are seen. The parotid glands, submandibular glands, and thyroid gland are unremarkable. Imaged portions of the brain parenchyma are unremarkable. The paranasal sinuses and mastoid air cells are normal in appearance. Impression: Soft tissue stranding in the mandibular tissues extending to the mid neck compatible with cellulitis. No drainable fluid collection is seen. ACT 112: Negative or not required by law. Electronically signed by: Romeo Hua M.D. 09/12/2022 10:49 AM Hospital Course (1) Periodontitis: The patient was noted to have a right-sided mandibular molar tooth abscess clinically and radiographically. He was initiated on IV unasyn and provided pain control. Dr Joesph Dominguez from Oromaxillofacial Surgery was consulted, and on 09/13/22 Dr Dominguez took him to the OR for I/D of the abscess and extraction of #31 molar. He remained hemodynamically stable during his brief stay. Pain was controlled at time of discharge and he was able to eat/drink without difficulty. He will continue Peridex rinses twice daily until time of f/u with Dr Dominguez, and he will complete a 10-day course of augmentin 875mg twice daily. A small amount of hydrocodone was prescribed at discharge for pain control. He has scheduled f/u with Dr Dominguez in about 2 weeks post-discharge. (2) Dental abscess: See above. (3) History of non-Hodgkin's lymphoma: History of stage I non-Hodgkin's lymphoma. s/p tongue lesion resection, chemo, radiation in . (4) Hypercholesterolemia with LDL greater than 190 mg/dL: by report has declined statin therapy in the past Total Time Total Time Spent Total Time Spent (In Minutes): 40 Discharge Plan Discharge Items Patient Disposition: Home - Self-Care Reason For Visit: MANDIBULAR CELLULITIS Discharge Diagnosis: facial abcess right lower jaw Condition on Discharge: Good Activity: Resume your previous activity Lifting: Gradually increase as tolerated Bathing: No limitations Exercise/Sports: Gradually increase as tolerated Driving/Machine Use: No driving if taking narcotic pain killer medication Non-emergency contact: Primary Care Provider and Surgeon Call non-emergency contact if: your temperature is above 101.5, your wound has increased redness, your wound has increased drainage and your wound pain has increased Follow-up/Referrals: Lien Ruiz MD [Primary Care Provider] - 09/18/22 11:00 am (with erick Boucher) Joesph Dominguez DMD [Physician] - 10/01/22 1:15 pm Diet: Regular Diet Texture: Easy to Chew Addtl Attending Provider Instructions: ADDITIONAL ACTIVITY RECOMMENDATIONS following your tooth extraction - from Dr Dominguez: * Poyen teeth after every meal. It is very important to keep your mouth clean to prevent infection. * Starting tonight rinse with the Peridex as directed then 2 times a day * it is very important to keep well hydrated, this prevents fever and possible dry socket pain SPECIAL CARE INSTRUCTIONS: *It is not uncommon that between day 2-4 that your swelling will be at its worst this is very normal, do not be alarmed. * Keep ice on the side of your face for the next 24 to 36 hours. This will help keep the swelling down. * After 36 hours, apply heat (hot water bottle or heating pad) for the next two days, as often as possible. * Tomorrow start rinsing your mouth with 1/2 teaspoon salt in 8 ounces warm water. This rinse should be used every 4-6 hours. * You may experience slight nausea. To prevent this, never take your medication on an empty stomach. If nauseated, take small sips of tim lauro until you feel better; then you may start on applesauce and toast. * Some swelling is common. It should gradually decrease within 4-5 days. * A certain amount of bleeding is to be expected. It is often possible to control mild oozing by placing folded gauze over the area and biting down for 30 minutes. If you are unable to control excessive bleeding, call Dr Dominguez at [phone] * You may experience some discomfort for a few days. If pain or swelling increases, Call Dr Dominguez * Return to the office for a follow up check up on: Oct 01 at 1:15 pm * office address--[address] phone # [phone] * Ok to resume driving in 24 hours IF YOU ARE NOT TAKING ANY NARCOTIC PAIN KILLER MEDICATION The hydrocodone/acetaminophen pain medication may make you constipated. It can also make you drowsy. Thus, no driving or using alcohol while taking this medication. The hydrocodone contains tylenol in it so do not take extra botb-buo-iavegwz tylenol if you decide to use the pain killer medication. For any constipation you may take qeex-udp-kquzhwl miralax and/or senokot. It was our pleasure to care for you! Dr Dunaway Pending Studies at Discharge: No Stand-Alone Forms: My [facility] Medications and DC Order Prescriptions: New chlorhexidine gluconate [Peridex] 0.12 % mouthwash 15 ml buccal BID 14 Days Qty: 473 1RF Rx Instructions: swish and spit Continued finasteride 5 mg tablet 2.5 mg PO HS Qty: 45 3RF Rx Instructions: 1/2 tab PO DAILY ondansetron HCl 8 mg tablet 8 mg PO Q8H PRN (Reason: nausea and vomiting) Qty: 10 0RF mupirocin 2 % ointment 1 applic topical BID PRN (Reason: epistaxis) Qty: 15 1RF Rx Instructions: Apply small amount to the rim of the nostril multivitamin [Daily Multi-Vitamin] tablet 1 tab PO HS aspirin 81 mg Tablet 81 mg PO QPM bile msvwi-emhd-ruys-phenolpth Tablet 1 tab PO QPM amoxicillin-pot clavulanate 875-125 mg tablet 1 tab PO Q12H Qty: 20 0RF hydrocodone-acetaminophen 5-325 mg tablet 1 tab PO Q4H PRN (Reason: pain) Qty: 10 0RF Discharge Orders: Discharge Order (Routine); Ordered 09/14/22 Ordered By: Hadley Dunaway Admission Data Admit Date/Time: 09/12/22 11:37 Attending Provider: Hadley Dunaway Admit Provider: Lester Valle Primary Care Provider: Lien Ruiz Other Providers: Lester Valle ; Joesph Dominguez Other Interventions: Discharge Summary Assessment (RN) Last Done: 09/14/22 13:01 Coding Level of Care Code D/C DAY MANAGEMENT >30 MINS Diagnoses Periodontitis K05.30 Dental abscess K04.7 History of non-Hodgkin's lymphoma Z85.72 Hypercholesterolemia with LDL greater than 190 mg/dL E78.00
--- NOTE | 2022-09-15 17:05 | Operative Report ---
PG Post Operative Report Pre & Post Diagnosis Operation Date: 09/13/22 14:30 Pre-Op Diagnosis: MANDIBULAR CELLULITIS Post-Op Diagnosis: MANDIBULAR CELLULITIS I identified the patient and participated in the time-out.: Yes Procedure Operation Date: 09/13/22 14:30 Actual Procedures p Incision and Drainage Right Jaw(Not Applicable) - Joesph Dominguez DMD s Extraction of Tooth #31(Not Applicable) - Joesph Dominguez DMD Surgeon Joesph Dominguez DMD Personal Carer none Estimated Blood Loss 1 Findings Consistent with Post-Op Diagnosis submandibular right swelling, masseter space swelling, trismus, fractured # 31 Specimens none Drains none Complications none Indications submandibular right swelling, masseter space swelling, trismus, fractured # 31 Description of Procedure Actual Procedures p Incision and Drainage right Submandibular Abscess; Removal of Tooth #31(Not Applicable) - Joesph Dominguez DMD ICD 10 K12.2, CPT 66238 Intraoral I&D arson and bomb investigator space (right)/ floor of the mouth/ submandibular spaces [id number] extraction # 31 Once cleared for surgery general anesthesia was achieved, the eyes were protec donald by the anesthesia dept criteria. A time out was take for patient ID, antibiotics, equipment and position verification once all agreed the procedure began. Local anesthesia using Lidocaine 2% with a vasoconstrictor ( 1.8 ml per site) given into right inferior alveolar nerve A throat pack was placed after the oral cavity was irrigated with saline. Once a surgical level of anesthesia was obtained and the local anesthesia was given time for the blocks the surgery was started. I turned my attention to the infection which was located in the floor of the mouth and submental area. The tongue was elevated and there was also swelling associated with tooth # 31 ( see CT scan report) Incision and Drainage CPT 66795 Intraoral I&D arson and bomb investigator space (right)/ floor of the mouth/ submandibular spaces Using a 15 blade an incision was made lateral to the alveolar ridge and medial to the duct of the submandibular gland. Once the incision was made a lot of pus extruded from the site. A curved hemostat was carefully placed into the infected space along the medial side of the lower jaw and into the submental space. Intraoral I&D of arson and bomb investigator space (right) / floor of the mouth/ submandibular spaces Some further drainage was now allowed to escape. I palpated the chin and submental area and no further drainage was expressed. The area was irrigated with at least 100 ml of NS solution. I now turned my attention to remove the # 31 tooth. Lower # 31 [id number] The full thick Muco-periosteal flap was made on the facial aspect from # 28-32. The flap was reflected to expose the the subperiosteal space the bone adjacent to # 31 The rongeur was used to remove bone, the tooth was removed with a 301 elevator, the mental nerve was intact, there was a large amount of granulation tissue on the apex and some more pus that was expressed. I inspected the sites to insure all bleeding was controlled. I removed the throat pack and suctioned the throat. A gauze pressure dressings were placed. All instrument and sponge count was correct. the patient was allowed to awake from the anesthesia. Once full awake the anesthesia tube was removed and the patient was taken to the recovery room with all vital sign stable. The patient tolerated the surgery very well. I will follow the patient in my office, Rx and instructions will be given upon discharge. I attest to the content of the Intraoperative Record and any orders documented therein. Any exceptions are noted below.
== END 2022-09-14 13:30 | disposition home or self-care (01) | DRG 159 ==
LOC: ED 09:20 → SUATTDRO 11:37 → 2S 11:37